=== PATIENT | female | born 1955 | race Caucasian/White ===

== ENCOUNTER 2017-09-14 14:24 | Emergency (ER) | payer SELFPAY ==
[2017-09-14 14:35] VITALS: BP 146/99; PULSE 89; RESP 16; TEMP 98.2; O2SAT 100
--- NOTE | 2017-09-14 14:45 | ED PDOC ---
Upper Extremity Pain/Injury Time Seen by Provider: 09/14/17 14:28 Chief Complaint (Nursing): Upper Extremity Problem/Injury Chief Complaint (Provider): Right shoulder pain History Per: Patient History/Exam Limitations: no limitations Onset/Duration Of Symptoms: Mins Current Symptoms Are (Timing): Still Present Additional Complaint(s): Patient is a 62 y/o female with a past medical history of osteoporosis presenting to the emergency department for right shoulder pain following a fall that occurred less than half an hour ago. Reports that she fell down with outstretched hands after chasing her grandchildren. Reports hitting her shoulder and notes decreased range of motion with pain radiating to her right upper arm. Also notes that the pain has remained the same since onset. Denies pain radiating to her neck, chest, back, or numbness, tingling, or other complaints. PCP: none provided. Past Medical History Reviewed: Historical Data, Nursing Documentation, Vital Signs Vital Signs: Last Vital Signs Temp 98.2 F 09/14/17 14:30 Pulse 89 09/14/17 14:30 Resp 16 09/14/17 14:30 BP 146/99 H 09/14/17 14:30 Pulse Ox 100 09/14/17 14:30 - Medical History PMH: Osteoporosis - Family History Family History: States: No Known Family Hx - Home Medications Home Medications: Ambulatory Orders Medication Instructions Recorded Cyclobenzaprine [Cyclobenzaprine 10 mg PO BID #14 tab 09/14/17 HCl] Ibuprofen [Motrin] 400 mg PO Q6 #30 tab 09/14/17 - Allergies Allergies/Adverse Reactions: Allergies Allergy/AdvReac Type Severity Reaction Status Date / Time No Known Allergies Allergy Verified 09/14/17 14:30 Review of Systems ROS Statement: Except As Marked, All Systems Reviewed And Found Negative Musculoskeletal: Positive for: Shoulder Pain (right), Arm Pain (right upper). Negative for: Back Pain (chest, or neck pain) Neurological: Negative for: Numbness (or tingling) Physical Exam - Reviewed Nursing Documentation Reviewed: Yes Vital Signs Reviewed: Yes - Physical Exam Appears: Positive for: Well, Non-toxic, No Acute Distress Head Exam: Positive for: ATRAUMATIC, NORMAL INSPECTION, NORMOCEPHALIC Skin: Positive for: Normal Color, Warm, Dry Eye Exam: Positive for: Normal appearance Neck: Positive for: Normal Cardiovascular/Chest: Positive for: Regular Rate, Rhythm Respiratory: Negative for: Accessory Muscle Use, Respiratory Distress Extremity: Positive for: Normal ROM (right shoulder, right wrist and fingers), Tenderness (mild right shoulder joint), Other (good pronation and supination bilaterally) Neurologic/Psych: Positive for: Alert, Oriented (x3) - ECG O2 Sat by Pulse Oximetry: 100 (RA) Pulse Ox Interpretation: Normal - Radiology X-Ray: Interpreted by Me X-Ray Interpretation: No Acute Disease Medical Decision Making Medical Decision Making: Time: 14:52 Initial impression: Right shoulder pain Initial plan: Right shoulder x-ray normal impression of shoulder. will give pt felxril and motrin and sling for shoulder with f/u with pmd repeat xray i 7-8 days of with persistent pain ~ Scribe Attestation: Documented by Benita Hernandez, acting as a scribe for NISH Swift. Provider Scribe Attestation: All medical record entries made by the Scribe were at my direction and personally dictated by me. I have reviewed the chart and agree that the record accurately reflects my personal performance of the history, physical exam, medical decision making, and the department course for this patient. I have also personally directed, reviewed, and agree with the discharge instructions and disposition. Disposition - Clinical Impression Clinical Impression: Shoulder injury - Patient ED Disposition Is Patient to be Admitted: No Counseled Patient/Family Regarding: Studies Performed, Diagnosis, Need For Followup, Rx Given - Disposition Referrals: [facility] [place] [Outside] [facility] [Outside] Disposition: Routine/Home Disposition Time: 15:17 Condition: STABLE Prescriptions: Cyclobenzaprine [Cyclobenzaprine HCl] 10 mg PO BID #14 tab Ibuprofen [Motrin] 400 mg PO Q6 #30 tab Instructions: Shoulder Sprain (ED) Forms: Eyelation (Upper Sorbian)
--- NOTE | 2017-09-14 16:06 | RAD ---
PROCEDURE: Radiographs of the Right Shoulder HISTORY: Shoulder pain COMPARISON: No prior. FINDINGS: BONES: There is no acute displaced fracture or bone destruction. Bone alignment is normal. JOINTS: There is mild degenerative osteoarthrosis in the acromioclavicular joint. The glenohumeral joint is normal. SOFT TISSUES: Normal. OTHER FINDINGS: None. IMPRESSION: No acute fracture or dislocation. Mild degenerative osteoarthrosis in the acromioclavicular joint.
== END 2017-09-14 15:49 | disposition home or self-care (01) ==
LOC: H.ER 14:24
DX: S49.91XA Unspecified injury of right shoulder and upper arm, initial encounter (principal); W19.XXXA Unspecified fall, initial encounter; Y92.89 Other specified places as the place of occurrence of the external cause